=== PATIENT | female | born 1995 | race Caucasian/White ===

== ENCOUNTER 2017-12-16 18:30 | Inpatient (IN) | payer BC, OTHER ==
[2017-12-16] MEDS ORDERED: PROMETHAZINE HCL 25 MG/1 ML VIAL IVPUSH ONE (20:12)
[2017-12-16] MEDS ORDERED: BUTORPHANOL TARTRATE 1 MG/ML VIAL IVPUSH PRN (20:12)
[2017-12-16] MEDS ORDERED: DINOPROSTONE 10 MG VAGINAL SUPPOSITORY VG ONE (20:14)
[2017-12-16 20:33] VITALS: BMI 27.3
[2017-12-16 21:17] LABS: BASO % 0.4 % (0-2.0); EOS % 1.4 % (0-4.5); HEMATOCRIT 31.2 % (32.4-45.2); HEMOGLOBIN 10.1 GM/dL (10.7-15.3); LYMPH % 15.3 % (8-40); MCH 23.6 pg (25.7-33.7); MCHC 32.6 g/dl (32.0-36.0); MEAN CELL VOLUME 72.5 fl (80-96); MEAN PLT VOLUME 8.9 fl (7.5-11.1); MONO % 6.4 % (3.8-10.2); NEUT % 76.5 % (42.8-82.8); PLATELET COUNT 228 K/MM3 (134-434); RDW 14.9 % (11.6-15.6); WHITE BLOOD COUNT 11.7 K/mm3 (4.0-10.0)
--- NOTE | 2017-12-16 21:29 | PN ---
Progress Note (short form) - Note Progress Note: cx 1 cm 50 vx -3 mi, fhr cat 1, irregular contraction, not felt by patient, cervidil ,risks discussed, ulternatives explained, cervidil inserted
[2017-12-16 21:32] LABS: ACTIVATED PTT 24.6 SECONDS (25.2-36.5)
--- NOTE | 2017-12-16 21:34 | HP ---
Past Medical History - Primary Care Physician PCP:: Lucius Dominguez - Admission Chief Complaint: 40.1 weeks, GDM, for cervidil induction History of Present Illness: 21 yo f edc by sono 12/16/17 with hx of GDM, diet controlled , and low TORO admitted for cervidil nduction, rba discussed , cx 1 cm 50, vx -3, irregular contraction , fhr cat 1 History Source: Patient Limitations to Obtaining History: No Limitations - Past Medical History ...: 1 ...Para: 0 ...Term: 0 ...: 0 ...Spon : 0 ...Induced : 0 ...Multiple Gestation: 0 ...LMP: 03/12/17 ... Weeks Gestation by Dates: 39.6 ...EDC by Dates: 12/17/17 ...EDC by Sono: 12/15/17 - Past Surgical History Hx Myomectomy: No Hx Transabdominal Cerclage: No - Smoking History Smoking history: Former smoker Have you smoked in the past 12 months: No If you are a former smoker, when did you quit?: 2 years ago - Alcohol/Substance Use Hx Alcohol Use: No - Social History Usual Living Arrangement: Yes: With Spouse History of Recent Travel: No Home Medications - Allergies Allergies/Adverse Reactions: Allergies Allergy/AdvReac Type Severity Reaction Status Date / Time No Known Allergies Allergy Verified 12/16/17 20:11 - Home Medications Home Medications: Ambulatory Orders Pnv,Calcium 72/Iron,Carb/Folic [ Plus Iron Tablet] 1 tab PO DAILY Review of Systems - Review of Systems Constitutional: reports: No Symptoms Eyes: reports: No Symptoms HENT: reports: No Symptoms Neck: reports: No Symptoms Cardiovascular: reports: No Symptoms Respiratory: reports: No Symptoms Gastrointestinal: reports: No Symptoms Genitourinary: reports: No Symptoms Breasts: reports: No Symptoms Reported Integumentary: reports: No Symptoms Neurological: reports: No Symptoms Endocrine: reports: No Symptoms Hematology/Lymphatic: reports: No Symptoms Psychiatric: reports: No Symptoms Physical Exam - Maternity Vital Signs: Vital Signs Temperature 98.6 F 12/16/17 21:00 Pulse Rate 74 12/16/17 21:00 Respiratory Rate 20 12/16/17 21:00 Blood Pressure 126/66 12/16/17 21:00 O2 Sat by Pulse Oximetry (%) Constitutional: Yes: Well Nourished, No Distress, Calm Eyes: Yes: WNL, Conjunctiva Clear, EOM Intact HENT: Yes: WNL, Atraumatic, Normocephalic Neck: Yes: WNL, Supple, Trachea Midline Cardiovascular: Yes: WNL, Regular Rate and Rhythm Breast(s): Yes: WNL - Abdominal Exam/OB Fundal Height: 38 Number of Fetuses: Single Presentation: Vertex Contractions: Yes Regularity: Irregular Intensity: Unaware Monitor Mode: External Heart Rate Location: LLQ Accelerations: Uniform Decelerations: None - Vaginal Exam/OB Vaginal Bleediing: No Speculum Exam: No Dilatation (cm): 1 cm Effacement (%): 50 Amniotic Membrane Status: Intact Presentation: Vertex/Position Station: -3 - Physical Exam Musculoskeletal: Yes: WNL Extremities: Yes: WNL Edema: Yes Edema: LLE: Trace, RLE: Trace Deep Tendon Reflex Grade: Normal +2 Psychiatric: Yes: WNL - Labs Lab Results: CBC, BMP 12/16/17 21:00 Hemorrhage Risk Assessment - Risk Factors Medium Risk Factors: Yes: None High Risk Factors: Yes: None Risk Score: 1 Risk Level: Medium Risk Problem List - Problems (1) 40 weeks gestation of Code(s): Z3A.40 - 40 WEEKS GESTATION OF (2) Gestational diabetes Code(s): O24.419 - GESTATIONAL DIABETES MELLITUS IN , UNSP CONTROL Qualifiers: Gestational diabetes mellitus control: diet-controlled Trimester: third trimester Qualified Code(s): O24.410 - Gestational diabetes mellitus in , diet controlled Assessment/Plan admit for crvidil induction, rba discussed FHM pain management BGM
[2017-12-16 21:41] LABS: ANION GAP 9 MMOL/L (8-16); BLOOD UREA NITROGEN 10 mg/dL (7-18); CALCIUM 8.3 mg/dL (8.5-10.1); CHLORIDE 108 mmol/L (98-107); CO2 22 mmol/L (21-32); CREATININE 0.7 mg/dL (0.55-1.02); GLUCOSE,RANDOM 59 mg/dL (74-106); POTASSIUM 4.1 mmol/L (3.5-5.1); SODIUM 139 mmol/L (136-145)
[2017-12-16 21:49] LABS: INR 0.92 (0.83-1.09); PROTHROMBIN TIME (PATIENT) 10.4 SEC (9.7-13.0)
[2017-12-17] MEDS: ELECTROLYTE-148 SOLN 1,000 ML IV SCH ×2 (09:45→23:14)
[2017-12-17] MEDS ORDERED: OXYTOCIN 20 UNITS in 0.9% NS 20 UNIT/1,000 ML INFUS.BAG IV ONE (09:50)
[2017-12-17] MEDS ORDERED: OXYTOCIN 30 UNITS in 0.9% NS 30 UNIT/500 ML INFUS.BAG IVPB SCH (10:00)
[2017-12-17] MEDS ORDERED: DEXTROSE 5%-LACTATED RINGERS 500 ML IV ONE (16:20)
[2017-12-17] MEDS ORDERED: BUTORPHANOL TARTRATE 1 MG/ML VIAL ONE ×2 (17:34)
[2017-12-17] MEDS ORDERED: PROMETHAZINE HCL 25 MG/1 ML VIAL ONE (17:35)
[2017-12-17] MEDS ORDERED: TUBERCULIN PPD 5 TU/0.1ML SYRINGE (IN PATIENT USE ONLY) ID ONE (18:00)
--- NOTE | 2017-12-17 20:26 | PN ---
Progress Note, Labor Vaginal Exam #1 Labor Exam Date: 12/17/17 Labor Exam Time: 20:00 Heart Rate (range): 125 Dilatation: 4 Effacement (%): 80 Amniotic Membrane Status: Intact (SROM immidiately after the exam, clear) Presentation: Vertex/Position Station: -2 Remarks: EFW - 7.5lb Category 1 FHR FS - 65 Offered an Epidural Will request anesthesia asistance
[2017-12-17] MEDS ORDERED: FENTANYL/BUPIVACAINE/NS/PF - PCEA - 50 ML DISP.SYRIN EP ONE (20:48)
[2017-12-17] MEDS ORDERED: NALOXONE HCL 0.4 MG/ML VIAL IVPUSH PRN (21:17)
[2017-12-17] MEDS ORDERED: FENTANYL/BUPIVACAINE/NS/PF - PCEA - 50 ML DISP.SYRIN EP SCH (21:45)
[2017-12-18] MEDS ORDERED: FENTANYL/BUPIVACAINE/NS/PF - PCEA - 50 ML DISP.SYRIN EP ONE ×2 (01:55→06:32)
[2017-12-18] MEDS ORDERED: OXYTOCIN 20 UNITS in 0.9% NS 20 UNIT/1,000 ML INFUS.BAG IV ONE ×2 (05:29→12:39)
[2017-12-18] MEDS ORDERED: LIDOCAINE HCL 1% PRESERVATIVE FREE - 30ML VIAL ONE (05:29)
--- NOTE | 2017-12-18 05:43 | PN ---
Progress Note, Labor Vaginal Exam #2 Labor Exam Date: 12/18/17 Labor Exam Time: 05:00 Heart Rate (range): 150's +accels, 3 varriable decels with late compon Dilatation: 9 Effacement (%): 90% Amniotic Membrane Status: Ruptured Presentation: Vertex/Position Station: -1 (+ caput, asynclitic) Remarks: 21yo P0 with GDM rapid progress of labor, likely the reason for Category 2 FHR now normalized FRH, Pitocin lowered to 12mU/min continue monitoring progress of labor exellent MF status now alternating fluids to keep FS at 120
--- NOTE | 2017-12-18 08:38 | PN ---
Progress Note, Labor Vaginal Exam #3 Labor Exam Date: 12/18/17 Labor Exam Time: 08:30 Heart Rate (range): 150 Dilatation: FD Effacement (%): 100 Amniotic Membrane Status: Ruptured Presentation: Vertex/Position Station: 0 Remarks: 21yo P0 with GDM IOL Category 1 FHR head is in OP position will allow for passive head descent since MF status is reassuring
[2017-12-18] MEDS ORDERED: GENTAMICIN SO4 80 MG/2 ML VIAL ONE (09:53)
[2017-12-18] MEDS ORDERED: AMPICILLIN SODIUM 2 GM VIAL ONE (09:53)
[2017-12-18] MEDS ORDERED: AMPICILLIN - 2 GM in SODIUM CHLORIDE 100 ML IVPB ONE (09:58)
[2017-12-18] MEDS ORDERED: GENTAMICIN 80 MG PREMIXED IVPB 80 MG/100 ML BAG IVPB ONE (11:00)
--- NOTE | 2017-12-18 11:03 | PN ---
Delivery - Delivery Vaginal Delivery: No Problems Type of Anesthesia: Epidural Episiotomy/Laceration: None EBL (cc): 300 Delivery, Single - Stages of Labor Date 1st Stage Initiatied: 12/17/17 Time 1st Stage Initiated: 17:00 Date 2nd Stage Initiated: 12/18/17 Time 2nd Stage Initiated: 08:30 Date of Delivery: 12/18/17 Time of Delivery: 10:46 Date Placenta Delivered: 12/18/17 Time Placenta Delivered: 10:50 Placenta: Yes: Spontaneous - Condition of General Ledger Accountant/Liquid Sugar Fortifier Present: Yes Name: Cass May Gender: Male Position: Left, OA - 1 Minute Total Score: 9 5 Minutes Total Score: 9 - Feeding Plan Initial Plan: Elected not to breastfeed exclusively throughout hospitalization Benefits of Exclusively reinforced: Yes Remarks - Remarks Remarks: Uncomplicated delivery of head and shoulders
[2017-12-18] MEDS ORDERED: BENZOCAINE 28 GM HEMORRHOIDAL OINTMENT TP PRN (11:04)
[2017-12-18] MEDS ORDERED: BISACODYL 10 MG SUPP.RECT RC PRN (11:04)
[2017-12-18] MEDS ORDERED: WITCH HAZEL 50% (TUCKS) 40 PAD/JAR PAD TP PRN (11:04)
[2017-12-18] MEDS ORDERED: METHYLERGONOVINE MALEATE 0.2 MG/1 ML AMP IM PRN (11:04)
[2017-12-18] MEDS ORDERED: BENZOCAINE 20% 57 GM BOTTLE TP PRN (11:04)
[2017-12-18] MEDS ORDERED: D5W-LR W/ 20 UNITS OXYTOCIN 20 UNIT/1,000 ML INFUS.BAG IV SCH (11:15)
[2017-12-18 11:22] LABS: ARTERIAL BLD GAS O2 SATURATION 34.9 % (90-98.9); ARTERIAL BLOOD GAS BASE EXCESS -6.2 meq/l (-2-2); ARTERIAL BLOOD GAS PO2 20.5 mmHg (80-100); ARTERIAL BLOOD GAS pH 7.21 (7.35-7.45)
[2017-12-18 11:24] LABS: VENOUS PC02 37.7 mmHg (38-52); VENOUS PH 7.35 (7.32-7.42); VENOUS PO2 26.1 mmHg (28-48)
[2017-12-18] MEDS ORDERED: ACETAMINOPHEN 325 MG TABLET (FP) ONE (11:48)
[2017-12-18] MEDS ORDERED: IBUPROFEN 600 MG TABLET (FP) PO ONE (11:48)
[2017-12-18] MEDS: IBUPROFEN 600 MG TABLET (FP) PO PRN ×3 (11:53→21:41)
[2017-12-18] MEDS: ACETAMINOPHEN 325 MG TABLET (FP) PO PRN ×3 (11:53→21:42)
[2017-12-18] MEDS: AMPICILLIN NA/SULBACTAM NA 1.5 GM in SODIUM CHLORIDE 100 ML IVPB SCH ×2 (14:47→21:43)
[2017-12-18] MEDS: FERROUS SO4 325 MG TABLET (FP) PO SCH (21:41)
[2017-12-19] MEDS: AMPICILLIN NA/SULBACTAM NA 1.5 GM in SODIUM CHLORIDE 100 ML IVPB SCH (03:00)
[2017-12-19] MEDS: IBUPROFEN 600 MG TABLET (FP) PO PRN ×3 (06:12→23:35)
[2017-12-19] MEDS: ACETAMINOPHEN 325 MG TABLET (FP) PO PRN ×3 (06:13→23:35)
[2017-12-19 08:21] LABS: BASO % 0.3 % (0-2.0); EOS % 2.9 % (0-4.5); HEMATOCRIT 24.9 % (32.4-45.2); HEMOGLOBIN 7.8 GM/dL (10.7-15.3); LYMPH % 16.9 % (8-40); MCH 22.9 pg (25.7-33.7); MCHC 31.3 g/dl (32.0-36.0); MEAN PLT VOLUME 8.8 fl (7.5-11.1); MONO % 5.9 % (3.8-10.2); PLATELET COUNT 156 K/MM3 (134-434); RBC 3.42 M/mm3 (3.60-5.2); RDW 15.6 % (11.6-15.6)
[2017-12-19] MEDS: PRENATAL VITAMINS W/ FOLIC ACID TABLET (FP) PO SCH (09:24)
[2017-12-19] MEDS: FERROUS SO4 325 MG TABLET (FP) PO SCH ×2 (09:24→23:31)
--- NOTE | 2017-12-19 10:28 | PN ---
Post Progress Note - Subjective Subjective: No complains, voiding, ambulating Post Day: 1 Type of Delivery: Vital Signs: Vital Signs Temperature 98.7 F 12/19/17 08:33 Pulse Rate 53 L 12/19/17 08:33 Respiratory Rate 20 12/19/17 08:33 Blood Pressure 123/78 12/19/17 08:33 O2 Sat by Pulse Oximetry (%) 100 12/18/17 12:15 Breast Exam: Yes: Soft Uterus: Yes: Fundus Firm Abdomen/GI: Yes: Abdomen soft Lochia: Yes: Rubra Lochia, amount: Small Extremities: Yes: Calves non-tender Perineum: Yes: Intact Activity: Ambulating - Labs Labs: CBC WBC 12.0 K/mm3 (4.0-10.0) H 12/19/17 07:45 RBC 3.42 M/mm3 (3.60-5.2) L 12/19/17 07:45 Hgb 7.8 GM/dL (10.7-15.3) L 12/19/17 07:45 Hct 24.9 % (32.4-45.2) L D 12/19/17 07:45 MCV 73.0 fl (80-96) L 12/19/17 07:45 MCH 22.9 pg (25.7-33.7) L 12/19/17 07:45 MCHC 31.3 g/dl (32.0-36.0) L 12/19/17 07:45 RDW 15.6 % (11.6-15.6) 12/19/17 07:45 Plt Count 156 K/MM3 (134-434) D 12/19/17 07:45 MPV 8.8 fl (7.5-11.1) 12/19/17 07:45 Absolute Neuts (auto) 8.8 K/mm3 (1.5-8.0) H 12/19/17 07:45 Neutrophils % 74.0 % (42.8-82.8) 12/19/17 07:45 Lymphocytes % 16.9 % (8-40) 12/19/17 07:45 Monocytes % 5.9 % (3.8-10.2) 12/19/17 07:45 Eosinophils % 2.9 % (0-4.5) D 12/19/17 07:45 Basophils % 0.3 % (0-2.0) 12/19/17 07:45 Nucleated RBC % 0 % (0-0) 12/19/17 07:45 Assessment/Plan 21yo P1 PPD # 1 doing well, VSS, Afebrile <24 hrs Rh positive, no need for RhoGam Baby boy, cleared for circumcision Plan to D/C in am NPV x 6wks RTO 4-6wks
[2017-12-19] MEDS ORDERED: SENNOSIDES/DOCUSATE COMBO (SENNA PLUS) TABLET (UD) PO PRN (22:00)
[2017-12-20 07:41] VITALS: BP 113/51; PULSE 57; TEMP 98
[2017-12-20] MEDS: FERROUS SO4 325 MG TABLET (FP) PO SCH (10:03)
[2017-12-20] MEDS: PRENATAL VITAMINS W/ FOLIC ACID TABLET (FP) PO SCH (10:03)
--- NOTE | 2017-12-20 10:46 | DS ---
Physical Exam-SHOE STOCK ASSOCIATE Vital Signs: Vital Signs Temperature 98 F 12/20/17 07:39 Pulse Rate 57 L 12/20/17 07:39 Respiratory Rate 20 12/20/17 07:39 Blood Pressure 113/51 12/20/17 07:39 O2 Sat by Pulse Oximetry (%) 100 12/18/17 12:15 Constitutional: Yes: Well Nourished, No Distress, Calm Eyes: Yes: WNL, Conjunctiva Clear, EOM Intact HENT: Yes: WNL, Atraumatic, Normocephalic Neck: Yes: WNL, Supple, Trachea Midline Cardiovascular: Yes: WNL, Regular Rate and Rhythm Respiratory: Yes: WNL, Regular, CTA Bilaterally Gastrointestinal: Yes: WNL, Normal Bowel Sounds, Soft ...Rectal Exam: Yes: WNL Renal/: Yes: WNL Pelvis: Yes: WNL External Genitalia: Yes: Normal Vaginal Exam: Yes: Normal ....Post : Yes: Uterus firm, Uterus non-tender Breast(s): Yes: WNL Musculoskeletal: Yes: WNL Extremities: Yes: WNL Edema: No Integumentary: Yes: WNL Wound/Incision: Yes: Clean/Dry, Well Approximated Neurological: Yes: WNL, Alert, Oriented ...Motor Strength: WNL Psychiatric: Yes: WNL, Alert, Oriented Labs: CBC, BMP 12/19/17 07:45 12/16/17 21:00 Delivery - Delivery Vaginal Delivery: No Problems Type of Anesthesia: Epidural Episiotomy/Laceration: None EBL (cc): 300 Delivery, Single - Stages of Labor Date 1st Stage Initiatied: 12/17/17 Time 1st Stage Initiated: 17:00 Date 2nd Stage Initiated: 12/18/17 Time 2nd Stage Initiated: 08:30 Date of Delivery: 12/18/17 Time of Delivery: 10:46 Time Placenta Delivered: 10:50 Placenta: Yes: Spontaneous - Condition of Oracle Sql Developer/Sampler And Test Preparer Present: Yes Name: Cass May Gender: Male Weight: 7 lb Position: Left, OA Total Hours ROM (Hrs/Mins): 14hrs 20min - 1 Minute Total Score: 9 5 Minutes Total Score: 9 - Feeding Plan Initial Plan: Elected not to breastfeed exclusively throughout hospitalization Benefits of Exclusively reinforced: Yes Discharge Summary Reason For Visit: INDUCTION OF LABOR Current Active Problems 40 weeks gestation of (Acute) Gestational diabetes (Acute) Procedures: Principal: Normal spontaneous vaginal delivery Other Procedures: Penile new born circumcision Condition: Good - Instructions Diet, Activity, Other Instructions: Physical activity Resume your normal everyday activity as tolerated no heavy lifting or exercise until seen by your surgeon. You may walk unlimited stefania of and climb stairs. You may resume driving the car when you feel safe and comfortable behind the wheel. No sexual activity as instructed. Wound care If you have a bandage, leave it on, and keep dry for 48-72 hours. After that time discard the outer bandage. If they are tapes on the skin under the out of bandage leave them in place. They will peel off in the next 7 to 10 days. Do Not Peel them off. You may shower the day after surgery. If there are tapes present on the skin, you may shower over them. Diet There are no dietary restrictions. Eat healthy, high-fiber foods. Drink 6 to 8 glasses of liquid each day. This will assist in keeping your bowels are regular. Pain management You may take Tylenol or acetaminophen or Ibuprofen (for example, Motrin, Advil etc.) from my pain prescription medication is ordered should be taken as prescribed for moderate to severe pain. Call MD for any of the following: Severe pain not relieved by medication Fever of 101 or higher Excessive bleeding or drainage on dressing Inability to urinate Referrals: Lucius Dominguez MD [Staff Physician] - Disposition: HOME - Home Medications Comprehensive Discharge Medication List: Ambulatory Orders Pnv,Calcium 72/Iron,Carb/Folic [ Plus Iron Tablet] 1 tab PO DAILY
== END 2017-12-20 15:35 | disposition home or self-care (01) | DRG 775 ==
LOC: JLDR 18:30 → J3W 12-18 13:30
PROVIDERS: ADMIT Obstetrics & Gynecology; ATTEND Obstetrics & Gynecology
PROC: 3E0P7VZ Introduction of Hormone into Female Reproductive, Via Natural or Artificial Opening (ICD-10-PCS; 2017-12-16)
PROC: 10E0XZZ Delivery of Products of Conception, External Approach (ICD-10-PCS; principal; 2017-12-18)
DX: O24.429 Gestational diabetes mellitus in childbirth, unspecified control (principal); Z3A.40 40 weeks gestation of pregnancy; Z37.0 Single live birth
CPT/HCPCS: 36415; 36600; 59409; 80048; 82803; 82962; 85025; 85461; 85610; 85730; 86593; 86850; 86870; 86900; 86901; 86902; 86999; 87389

== ENCOUNTER 2024-08-18 17:32 | Emergency (ER) | payer BC, OTHER ==
[2024-08-18 17:42] VITALS: BP 118/77; PULSE 88; RESP 18; TEMP 98.6; BMI 26.4
[2024-08-18 18:56] LABS: ABSOLUTE IMMATURE GRANULOCYTES 0.02 x10^3/uL (0.0-0.031); BASOPHILS # 0.02 x10^3/uL (0.01-0.08); EOSINOPHIL % 3.8 % (0.7-5.8); EOSINOPHILS # 0.24 x10^3/uL (0.04-0.36); HEMATOCRIT 39.1 % (34.1-44.9); HEMOGLOBIN 12.2 g/dL (11.2-15.7); MCHC 31.2 g/dl (32.2-35.5); MEAN CELL VOLUME 80.5 fl (79.4-94.8); MEAN PLT VOLUME 9.4 fl (9.4-12.3); MONOCYTE # 0.54 x10^3/uL (0.24-0.86); MONOCYTE % 8.6 % (4.7-12.5); PLATELET COUNT 217 x10^3/uL (182-369); RDW 13.7 % (12.1-16.5)
[2024-08-18 18:58] LABS: PH,URINE 7.5 (5.0-8.0); URINE APPEARANCE CLEAR; URINE BILIRUBIN NEGATIVE (NEGATIVE); URINE COLOR YELLOW; URINE GLUCOSE (UA) NEGATIVE (NEGATIVE); URINE KETONE TRACE (NEGATIVE); URINE LEUK ESTERASE NEGATIVE (NEGATIVE); URINE NITRITE NEGATIVE (NEGATIVE); URINE PROTEIN TRACE (NEGATIVE)
[2024-08-18 19:10] LABS: INR 1.12 (0.83-1.09); PROTHROMBIN TIME (PATIENT) 12.2 SEC (9.7-13.0)
[2024-08-18 19:12] LABS: ACTIVATED PTT 25.6 SECONDS (25.2-36.5)
[2024-08-18 20:26] LABS: POTASSIUM 3.9 mmol/L (3.5-5.1)
[2024-08-18 20:28] LABS: ALBUMIN 3.8 g/dl (3.4-5.0); CALCIUM 8.7 mg/dL (8.5-10.1)
[2024-08-18 20:30] LABS: BLOOD UREA NITROGEN 15.7 mg/dL (7-18)
[2024-08-18 20:31] LABS: CREATININE 0.7 mg/dL (0.55-1.3)
[2024-08-18 20:33] LABS: TOT PROT 6.8 g/dl (6.4-8.2)
[2024-08-18 20:34] LABS: BILIRUBIN,TOTAL 0.8 mg/dL (0.2-1)
[2024-08-18 21:13] LABS: HCG,QUALITATIVE URINE Negative
== END 2024-08-18 22:49 | disposition home or self-care (01) ==
LOC: JER 17:32
DX: R20.0 Anesthesia of skin (principal); R20.2 Paresthesia of skin
CPT/HCPCS: 36415; 70450-TC; 80053; 80061; 81003; 82550; 83036; 84484; 84703; 85025; 85610; 85730; 86850; 86900; 86901; 93005; 93010; 99284-25